=== PATIENT | female | born 1980 | race Caucasian/White ===

== ENCOUNTER 2021-06-03 09:20 | Emergency (ER) | payer MEDICARE, SELFPAY ==
[2021-06-03 09:35] VITALS: BP 149/93; PULSE 82; RESP 16; TEMP 36.6; O2SAT 98
[2021-06-03 10:28] LABS: Abs Immature Grans 0.01 10^3/uL (0.0-0.06); Absolute Basophil Count 0.04 10^3/uL (0.0-0.2); Absolute Eosinophil Count 0.07 10^3/uL (0.0-0.7); Absolute Lymphocyte Count 1.06 10^3/uL (1.2-3.4); Absolute Monocyte Count 0.46 10^3/uL (0.1-0.8); Basophils % 0.5; Eosinophils % 0.9; HCT 36.4 % (36.0-46.0); Immature Grans % 0.1; Lymphocytes % 14.1; MCH 28.7 pg (27.0-33.0); MCV 87.1 fL (80-95); MPV 10.6 fL (8.0-11.0); Monocytes % 6.1; Neutrophils % 78.3; Nucleated RBC 0 %; Platelet Count 338 10^3/uL (130-400); RBC 4.18 10^6/uL (3.93-5.22); RDW 12.3 % (11.7-14.6); RDW-SD 39.2 fL; WBC 7.54 10^3/uL (4.4-10.8)
[2021-06-03 10:28] LABS: Source Nasal/Nares
[2021-06-03 10:29] LABS: *AMPHETAMINES SCREEN URINE Negative (Negative); *BARBITURATES SCREEN URINE Negative (Negative); *BENZODIAZEPINES SCREEN URINE Positive (Negative); Cannabinoids THC Negative (Negative); Cocaine Screen,Urine Negative (Negative); METHADONE URINE SCREEN Negative (Negative); OPIATES URINE SCREEN Negative (Negative); Tricyclic Antidepressants Negative (Negative)
--- NOTE | 2021-06-03 10:32 | ED.GENADUL_ITS ---
Discharge Plan Disposition Patient Disposition: HOME Condition: Stable Discharge Details Clinical Impression: Mood disorder Primary Care Provider: Unknown,Unknown ED Provider: Michelle Zaldivar Home Meds and New Rx's Prescriptions: Continued lamotrigine [Lamictal] 150 mg Tablet 150 mg PO QHS RF: 0 atenolol 25 mg Tablet 25 mg PO DAILY RF: 0 ferrous sulfate [Iron (ferrous sulfate)] 325 mg (65 mg iron) Tablet 65 mg PO DAILY RF: 0 magnesium 250 mg Tablet 250 mg PO BID RF: 0 lisinopril 40 mg Tablet 40 mg PO DAILY RF: 0 aripiprazole [Abilify] 15 mg Tablet 7.5 mg PO QHS RF: 0 fenofibrate 120 mg Tablet 145 mg PO DAILY RF: 0 omega 3-mht-hgl-fish oil [Fish Oil] 300-1,000 mg Capsule 1 cap PO BID RF: 0 Cod Liver Oil plus Andi and D3 1,250 unit-130 unit-530 mg Capsule 1 cap PO DAILY RF: 0 carbamazepine (mood stabiliz) 300 mg Capsule, Er Multiphase 12 Hr 600 mg PO BID RF: 0 methylphenidate HCl [Ritalin] 10 mg Tablet 15 mg PO DAILY RF: 0 diazepam [Valium] 5 mg Tablet 5 mg PO BID PRNRF: 0 insulin lispro [Humalog KwikPen Insulin] 100 unit/mL Insulin Pen 3 unit SUBCUT DAILY RF: 0 insulin glargine 100 unit/mL Cartridge 20 unit subcut DAILY RF: 0 Discharge Instructions Additional Instructions: Please follow-up for your care bed placement tomorrow morning at 830 as discussed Please return should you have new or worsening complaints Your blood sugar during her ER visit is 375, take your blood sugar when you arrive home and supplement accordingly Please return with thoughts of wanting to harm self, others, or with any new or worsening complaints Medical Decision Making Mild hypertension, alert, oriented, of decisional capacity, denies suicidal or homicidal ideation evaluated by case management and patient mental health providerKika Patient will go to to her bed tomorrow morning She adamantly denies suicidal or homicidal ideation is alert, oriented, of decisional capacity, blood sugar 345 without evidence of diabetic ketoacidosis or HHS She will take her insulin when she arrives home At this time I think she stable for discharge to her bed She is given low threshold to return with new or worsening complaints Safety plan is reportedly in place and they will consult with patient Patient is medically cleared with her current insulin regimen for placement at this time She has remained competent throughout this encounter to make decisions for her is not apparently under the influence of any mood altering substances Medical Records Medical records reviewed: Yes I reviewed the patient's medical records. Lab Data Lab results reviewed: Yes I reviewed the patient's lab results. HPI General Mode of arrival: ambulatory . Date/Time Provider Initiated Documentation: 06/03/21 09:23 . Limitations to Documentation: no limitations . Information obtained by: patient . HPI Narrative: This very pleasant 40-year-old female presents with report of depression and anxiety. She did have some vague thoughts of wanting to hurt herself on Monday but denies any current thoughts. She denies any homicidal ideation. She denies any attempts to harm self. Patient denies any illicit substance abuse. She drinks alcohol very occasionally and had a last drink at Monday. She denies any chest pain, shortness of breath, dizziness, weakness. She did have a recent med change approximately 3 months ago, her Lamictal was reportedly decreased by half. She has been supplementing as she feels as though her depression and anxiety are worsening and she is also had some anger outbursts which is typical when she is not well controlled for her bipolar disorder. She also has recently started on Abilify reportedly. Denies any chance of . Taking medications as prescribed aside from a slight increase in her Lamictal. Denies any auditory visual hallucinations. Related Data Home Medications Medication Instructions Recorded Confirmed Cod Liver Oil plus Andi and D3 1 cap PO DAILY 06/03/21 06/03/21 aripiprazole [Abilify] 7.5 mg PO QHS 06/03/21 06/03/21 atenolol 25 mg PO DAILY 06/03/21 06/03/21 carbamazepine (mood stabiliz) 600 mg PO BID 06/03/21 06/03/21 diazepam [Valium] 5 mg PO BID PRN 06/03/21 06/03/21 fenofibrate 145 mg PO DAILY 06/03/21 06/03/21 ferrous sulfate [Iron (ferrous 65 mg PO DAILY 06/03/21 06/03/21 sulfate)] insulin glargine 20 unit SUBCUT DAILY 06/03/21 06/03/21 insulin lispro [Humalog KwikPen 3 unit SUBCUT DAILY 06/03/21 06/03/21 Insulin] lamotrigine [Lamictal] 150 mg PO QHS 06/03/21 06/03/21 lisinopril 40 mg PO DAILY 06/03/21 06/03/21 magnesium 250 mg PO BID 06/03/21 06/03/21 methylphenidate HCl [Ritalin] 15 mg PO DAILY 06/03/21 06/03/21 omega 2-nnp-tkk-fish oil [Fish Oil] 1 cap PO BID 06/03/21 06/03/21 Allergies Allergy/AdvReac Type Severity Reaction Status Date / Time No Known Allergies Allergy Unverified 06/03/21 09:44 General Stated Complaint: PsychEval MJ: 2 Review of Systems All systems reviewed & are unremarkable except as noted in HPI and below PFSH Social History Smoking/Tobacco Use Status: Former Tobacco Use Smoking risk assessment performed?: Yes Alcohol Intake: current Alcohol Intake frequency: holidays/special occasions only Drug use: Never Substance use type: does not use Do you feel safe at home: Yes Do you feel safe in your relationship?: Yes Exam Const General: cooperative and no acute distress Eyes Pupils: PERRL Resp Effort & Inspection: normal respiratory effort Auscultation: clear to auscultation bilaterally Cardio Rate: regular rate Rhythm: regular rhythm Skin General skin exam: no rashes or lesions noted Neuro General: patient alert and patient oriented x3 Cranial Nerves: CN's II-XI intact bilaterally Speech: speech normal Gait: antalgic Sensory Exam: no sensory deficits noted Psych Appearance: well kempt Mental Status: mental status grossly normal Speech and Movement: speech and movement normal Affect: normal affect Attitude: cooperative Thought Process: normal Thought Content: normal Course Vital Signs Vital signs: Vital Signs Temperature 36.6 C 06/03/21 09:35 Pulse 82 06/03/21 09:35 Respiratory Rate 16 06/03/21 09:35 Blood Pressure 149/93 H 06/03/21 09:35 Pulse Oximetry 98 06/03/21 09:35 Temperature 36.6 C 06/03/21 09:35 Temperature Source Oral 06/03/21 09:35 Pulse 82 06/03/21 09:35 Respiratory Rate 16 06/03/21 09:35 Respiratory Effort Non-Labored 06/03/21 09:53 Blood Pressure 149/93 H 06/03/21 09:35 Blood Pressure Position Sitting 06/03/21 09:35 Pulse Oximetry 98 06/03/21 09:35 Oxygen Delivery Method Room Air 06/03/21 09:35 Oxygen Flow Rate 0 06/03/21 09:35 Lab/Test Results Lab/Test Results: Laboratory Tests Range/Units 06/03/21 06/03/21 06/03/21 09:30 10:08 10:20 WBC (4.4-10.8) 10^3/uL 7.54 RBC (3.93-5.22) 10^6/uL 4.18 Hgb (11.2-15.7) g/dL 12.0 Hct (36.0-46.0) % 36.4 MCV (80-95) fL 87.1 MCH (27.0-33.0) pg 28.7 MCHC (32.0-36.0) % 33.0 RDW (11.7-14.6) % 12.3 Plt Count (130-400) 10^3/uL 338 MPV (8.0-11.0) fL 10.6 Immature Gran % 0.1 Neutrophils % 78.3 Lymphocytes % 14.1 Monocytes % 6.1 Eosinophils % 0.9 Basophils % 0.5 Nucleated RBC % % 0 Absolute Neutrophils (1.2-6.7) 10^3/uL 5.90 Absolute Lymphocytes (1.2-3.4) 10^3/uL 1.06 L Absolute Monocytes (0.1-0.8) 10^3/uL 0.46 Absolute Eosinophils (0.0-0.7) 10^3/uL 0.07 Absolute Basophils (0.0-0.2) 10^3/uL 0.04 Urine Opiates Screen (Negative) Negative Urine Methadone Screen (Negative) Negative Ur Barbiturates Screen (Negative) Negative Ur Tricyclics Screen (Negative) Negative Ur Amphetamines Screen (Negative) Negative U Benzodiazepines Scrn (Negative) Positive A Urine Cocaine Screen (Negative) Negative Ur THC Screen (Negative) Negative COVID-19 Source Nasal/Nares POC- Test(urine) Negative
[2021-06-03 10:40] LABS: Salicylate < 2.8 mg/dL (<2.8)
[2021-06-03 10:43] LABS: Acetaminophen < 2 ug/mL (10-30)
[2021-06-03 10:46] LABS: ALT 28 U/L (14-59); AST 14 U/L (15-37); Albumin 3.7 g/dL (3.4-5.0); Alkaline Phosphatase 47 U/L (46-116); Anion Gap 9.6 mmol/L (3-11); BUN 16 mg/dL (7-18); Bilirubin, Total 0.4 mg/dL (0.2-1.0); CO2 25.4 mmol/L (21.0-32.0); CREATININE 0.9 mg/dL (0.55-1.02); Calcium 8.5 mg/dL (8.5-10.1); Chloride 100 mmol/L (98-107); ETHANOL BLOOD < 3.0 mg/dL (<3); Glucose 375 mg/dL (74-106); Potassium 4.2 mmol/L (3.5-5.1); Sodium 135 mmol/L (136-145); Total Protein 6.8 g/dL (6.4-8.2)
[2021-06-03 11:24] LABS: COVID-19 PCR Negative (Negative)
== END 2021-06-03 11:34 | disposition home or self-care (01) ==
PROVIDERS: Emergency Provider Physician Assistant
DX: F39 Unspecified mood [affective] disorder (principal); F32.9 Major depressive disorder, single episode, unspecified
CPT/HCPCS: 80053; 80307; 81025; 87635; 99283; 80320; 80329; 84443; 85025

== ENCOUNTER 2025-03-26 14:24 | Outpatient (CLI) | payer BC, MEDICARE, SELFPAY ==
--- NOTE | 2025-03-26 14:00 | DI.RAD_ITS ---
Exam(s) XR SHOULDER RT COMPLETE 2+V EXAM: XR SHOULDER RT COMPLETE 2+V CLINICAL HISTORY: RIGHT SHOULDER PAIN. TECHNIQUE: 2D digital imaging was performed. COMPARISON: No exams were available for comparison FINDINGS: Two views There is no evidence of fracture nor dislocation nor abnormal soft tissue calcifications. Subacromia l space appears unremarkable. There are no obvious degenerative changes in the glenohumeral and AC j oints. Visualized clavicle appears intact as does the coracoid process. Bone density normal. No os seous lesions. IMPRESSION: No significant radiograph findings on these two views of the glenohumeral joint DATA REPOSITORY: RADIATION DOSE DELIVERED:
== END 2025-03-26 14:25 | disposition home or self-care (01) ==
LOC: DIORS 14:24
PROVIDERS: PCP Chiropractor; Referring Provider Chiropractor; Visit Provider Student in an Organized Health Care Education/Training Program
DX: M25.511 Pain in right shoulder (principal); M75.101 Unspecified rotator cuff tear or rupture of right shoulder, not specified as traumatic; M75.01 Adhesive capsulitis of right shoulder; E11.9 Type 2 diabetes mellitus without complications; N18.9 Chronic kidney disease, unspecified
CPT/HCPCS: 36416; 83036; 99203; 73030

== ENCOUNTER → 2025-09-25 02:22 | Outpatient (CLI) | payer BC, MEDICARE, SELFPAY ==
--- NOTE | 2025-09-25 | DI.MAMMO_ITS ---
Exam(s) MAMMO SCREENING EXAM: MAMMO SCREENING CLINICAL HISTORY: SCREENING MAMMO Z12.31. TECHNIQUE: Bilateral full field digital CC and MLO mammographic images were obtained with 3D tomosynthesis and utilizing computer aided detection (CAD). COMPARISON: None. Prior mammogram was 2014. FINDINGS: Fibroglandular tissue pattern is heterogeneously dense. There are no CAD designations. There are no new spiculated masses nor malignant appearing microcalcification groups. There is no significant architectural distortion nor skin thickening-retraction. IMPRESSION: Dense fibroglandular tissue. No obvious radiographic evidence of malignancy. BI-RADS Category 1 - Negative Breast Density - Category C - The breast are heterogeneously dense, which may obscure small masses. Breast density Category C or D implies that the patient has dense breast tissue. Dense breast tissue can make it harder to find cancer on a mammogram. Dense breast tissue is also associated with an increased risk of breast cancer. This information about the result of the mammogram report was provided to the patient to raise their awareness. Use this report when you speak with the patient about their risks for breast cancer, which includes their family history. At that time, you may recommend additional screening tests (Ultrasound or MRI) as these tests may add significant information. A negative radiographic report should not delay biopsy if a dominant or clinically suspicious mass is present. Up to ten percent of cancers are not identified on mammography. A negative report may reinforce clinical impression. Adenosis and dense breasts may obscure an underlying neoplasm. False positive reports average 6 to 10%. Patient will receive a letter notifying them of these results.
== END ==
LOC: DI 02:22
PROVIDERS: PCP Chiropractor; Visit Provider Nurse Practitioner Family
DX: Z12.31 Encounter for screening mammogram for malignant neoplasm of breast (principal); R92.333 Mammographic heterogeneous density, bilateral breasts
CPT/HCPCS: 77063; 77067

== ENCOUNTER 2025-10-20 09:58 | Outpatient (CLI) | payer BC, MEDICARE, SELFPAY ==
[2025-10-20 09:27] LABS: ALT 23 U/L (10-49); AST 24 U/L (<34); Albumin 4.1 g/dL (3.2-5.0); Alkaline Phosphatase 32 U/L (46-116); Anion Gap 6.2 mmol/L (3-11); BUN 16 mg/dL (9-23); Bilirubin, Total 0.40 mg/dL (0.2-1.2); CO2 28.8 mmol/L (20.0-31.0); Calcium 9.7 mg/dL (8.3-10.6); Chloride 107 mmol/L (98-107); Cholesterol 149 mg/dL (<200); Glucose 174 mg/dL (74-106); HDL Cholesterol 86 mg/dL (>40); Potassium 4.0 mmol/L (3.5-5.1); Sodium 142 mmol/L (136-145); TSH (W/Ref FT4) 1.04 uIU/mL (0.55-4.78); Total Protein 6.3 g/dL (5.7-8.2)
[2025-10-20 09:27] LABS: Microalb ug/mg Crea 572.0 ug/mg Cr
[2025-10-20 09:45] LABS: Hemoglobin A1C 9.9 % (<5.7)
== END 2025-10-20 09:59 | disposition home or self-care (01) ==
LOC: LBO 10:03
PROVIDERS: Registered Nurse Critical Care Medicine; PCP Chiropractor; Visit Provider Nurse Practitioner Family
DX: E10.29 Type 1 diabetes mellitus with other diabetic kidney complication (principal); R80.9 Proteinuria, unspecified; E10.42 Type 1 diabetes mellitus with diabetic polyneuropathy; E10.9 Type 1 diabetes mellitus without complications
CPT/HCPCS: 36415; 80053; 80061; 82947; 82043; 82570; 83036; 84443; 84681